=== PATIENT | female | born 1970 | race Caucasian/White ===

== ENCOUNTER 2017-01-04 09:48 | Emergency (ER) | payer OTHER ==
[~2017-01-04] VITALS: Ht 167.6 cm; Wt 78.0 kg
[~2017-01-04 09:48] MED LIST: PAXIL
[2017-01-04 09:57] VITALS: Ht 167.6 cm; Wt 78.0 kg
[2017-01-04 10:28] LABS: URINE BLOOD (Dip) POC Negative (NEGATIVE)
[2017-01-04 11:06] LABS: ADD UMIC YES; URINE BILIRUBIN (Dip) NEGATIVE (NEGATIVE); URINE BLOOD (Dip) NEGATIVE (NEGATIVE); URINE COLOR YELLOW (YELLOW); URINE GLUCOSE (Dip) NEGATIVE (NEGATIVE); URINE KETONES (Dip) NEGATIVE (NEGATIVE); URINE LEUKOCYTE ESTERASE (Dip) TRACE (NEGATIVE); URINE NITRITE (Dip) NEGATIVE (NEGATIVE); URINE TOTAL PROTEIN (Dip) NEGATIVE (NEGATIVE); URINE UROBILINOGEN (Dip) 0.2 E.U./dL (0.1-1.0)
[2017-01-04 11:29] LABS: BACTERIA,URINE OCCASIONAL; SQUAMOUS EPITHELIAL CELL,UR FEW; URINE RBCS NONE SEEN /HPF (0)
[2017-01-04] MEDS ORDERED: PHEN-537 PO (11:51)
[2017-01-04] MEDS ORDERED: CEPH-443 PO (11:51)
[2017-01-04] MEDS ORDERED: CEFTRIAXONE 250 MG INJ IM ONE (12:00)
--- NOTE | 2017-01-04 12:10 | ERA ---
ER Documentation Chief Complaint Date/Time DATE: 01/04/17 TIME: 12:05 Chief Complaint Pt with B flank pain and dysuria x 1 week, chills last night. HPI Patient is a 46-year-old female whose chief complaint is bilateral flank pain. Patient's pain has been lasting for the past 2 days. Patient also complains of dysuria. Patient denies hematuria, vaginal discharge, pruritus, abdominal pain , change in bowel habits, foul odor or headache. Patient was diagnosed with the UTI 3 weeks ago and underwent a 7 day course of Levaquin. Patient says that the symptoms feel the same. There are no aggravating or relieving factors to stated. ROS All systems reviewed and are negative except as per history of present illness. Medications Home Meds Active Scripts Phenazopyridine Hcl* (Pyridium*) 100 Mg Tab, 100 MG PO TID Y for URINARY PAIN, # 8 TAB Prov:JENNY BELL PA-C 01/04/17 Cephalexin* (Keflex*) 500 Mg Capsule, 500 MG PO QID for 7 Days, CAP Prov:JENNY BELL PA-C 01/04/17 Reported Medications [Paxil] No Conflict Check 06/25/11 Allergies Allergies: Coded Allergies: No Known Drug Allergies (Verified Allergy, Unknown, 01/04/17) PMhx/Soc Medical and Surgical Hx: pt denies Surgical Hx History of Surgery: No Anesthesia Reaction: No Hx Neurological Disorder: No Hx Respiratory Disorders: No Hx Cardiac Disorders: No Hx Psychiatric Problems: Yes (ANXIETY/DEPRESSION) Hx Miscellaneous Medical Probl: No Hx Alcohol Use: No Hx Substance Use: No Hx Tobacco Use: No Smoking Status: Never smoker Physical Exam Vitals Vital Signs Date Time Temp Pulse Resp B/P Pulse Ox O2 Delivery O2 Flow Rate FiO2 01/04/17 09:57 98.8 79 20 131/74 96 Physical Exam Const: Well-appearing overweight 38-year-old Head: Atraumatic Eyes: Normal Conjunctiva ENT: Normal External Ears, Nose and Mouth. Neck: Full range of motion..~ No meningismus. Resp: Clear to auscultation bilaterally Cardio: Regular rate and rhythm, no murmurs Abd: Soft, non tender, non distended. Normal bowel sounds. No masses felt. No McBurney's point tenderness. Skin: No petechiae or rashes Back: No midline or flank tenderness to palpation. No CVA tenderness. Ext: No cyanosis, or edema Neur: Awake and alert Psych: Normal Mood and Affect Results 24 hrs Laboratory Tests Test 01/04/17 10:28 01/04/17 10:29 Urine Color YELLOW Urine Clarity CLEAR Urine pH 7.5 Urine Specific [place] 1.010 Urine Ketones NEGATIVE Urine Nitrite NEGATIVE Urine Bilirubin NEGATIVE Urine Urobilinogen 0.2 E.U./dL Urine Leukocyte Esterase TRACE Urine Microscopic RBC NONE SEEN/HPF Urine Microscopic WBC 0-2/HPF Urine Squamous Epithelial Cells FEW Urine Bacteria OCCASIONAL Urine Hemoglobin NEGATIVE Urine Glucose NEGATIVE% Urine Total Protein NEGATIVE Bedside Urine pH (LAB) 8.5 Bedside Urine Protein (LAB) Trace Bedside Urine Glucose (UA) Negative Bedside Urine Ketones (LAB) Negative Bedside Urine Blood Negative Bedside Urine Nitrite (LAB) Negative Bedside Urine Leukocyte Esterase (L Trace Current Medications Medications (Trade) Dose Ordered Sig/Stuart Route PRN Reason Start Time Stop Time Status Last Admin Dose Admin Ceftriaxone Sodium (Rocephin) 250 mg ONCE ONCE IM 01/04/17 12:00 01/04/17 12:01 DC Procedures/MDM 38-year-old female with dysuria and bilateral flank pain. Labs showed no hematuria but mild to moderate leukocyte esterase and an elevated pH of 8.5.. Otherwise normal. Most likely diagnosis is cystitis. There is no CVA tenderness on physical exam the patient appears well; I very low suspicion for pyelonephritis. There is no hematuria and the pain is bilateral and the patient is only in mild distress; I very low suspicion for nephrolithiasis. I will go ahead and treat the patient for acute cystitis. Will prescribe Keflex infection Pyridium for discomfort. Patient's vitals are stable and is ready for discharge. Will be given discharge instructions with return precautions. Culture was taken and patient will be notified if Departure Diagnosis: Primary Impression: Urinary tract infection Qualified Code: N30.00 - Acute cystitis without hematuria Condition: Stable Patient Instructions: Understanding Urinary Tract Infections (UTIs) Additional Instructions: Follow up with your PCP within the next 1-3 days for a more thorough evaluation and a possible referral to a specialist. Return the the emergency department immediately if symptoms worsen or change. If you have any questions regarding medications, ask your pharmacist or us before you leave. If any adverse reactions occur while taking your medications, discontinue the treatment and return to the emergency department immediately. Take your medications as directed, and complete the entire course of treatment. JENNY BELL PA-C January 04, 2017 12:10
[2017-01-04 12:57] VITALS: BP 131/82; PULSE 83; RESP 18; TEMP 98.1
== END 2017-01-04 12:58 | disposition home or self-care (01) ==
LOC: FTE 09:48
DX: N30.00 Acute cystitis without hematuria (principal)
CPT/HCPCS: 81001; 87086; 96372; 99284; J0696; 81003

== ENCOUNTER 2017-03-11 07:02 | Emergency (ER) | payer OTHER ==
[~2017-03-11] VITALS: Ht 165.1 cm; Wt 78.5 kg
[~2017-03-11 07:02] MED LIST changes: +CEPH-443 PO; +PHEN-537 PO
[2017-03-11 07:08] VITALS: Ht 165.1 cm; Wt 78.5 kg
[2017-03-11] MEDS ORDERED: ONDANSETRON 4 MG INJ IV STA (07:45)
[2017-03-11] MEDS ORDERED: SOD CHLORIDE 0.9% 1,000 ML IV STA (07:45)
[2017-03-11] MEDS ORDERED: morphine 4 MG/ML VIAL IV STA (07:45)
[2017-03-11 08:27] LABS: ADD SCAN DIFF NO
[2017-03-11 08:32] LABS: BASOPHILS % 0.5 % (0.0-2.0); EOSINOPHILS # 0.2 10^3/ul (0.0-0.5); EOSINOPHILS % 2.1 % (0.0-7.0); HEMATOCRIT 35.1 % (37.0-47.0); LYMPHOCYTES % 27.2 % (15.0-51.0); MEAN CORPUSCULAR HEMOGLOBIN 31.3 pg (29.0-33.0); MEAN CORPUSCULAR HGB CONC 34.2 g/dl (32.0-37.0); MEAN CORPUSCULAR VOLUME 91.4 fl (82.0-101.0); MONOCYTE # 0.5 10^3/ul (0.3-0.9); MONOCYTES % 6.9 % (0.0-11.0); NEUTROPHIL # 4.7 10^3/ul (1.6-7.5); NEUTROPHILS % 62.6 % (39.0-77.0); PLATELET COUNT 240 10^3/UL (140-415); RED BLOOD COUNT 3.84 10^6/ul (4.20-5.40); RED CELL DISTRIBUTION WIDTH 12.9 % (11.5-14.5); WHITE BLOOD COUNT 7.5 10^3/ul (4.8-10.8)
[2017-03-11 08:54] LABS: ALBUMIN 4.3 g/dl (3.3-4.9); ALBUMIN/GLOBULIN RATIO 1.48; BILIRUBIN,INDIRECT 0.4 mg/dl (0-1.1); BILIRUBIN,TOTAL 0.4 mg/dl (0.2-1.3); CALCIUM 9.3 mg/dl (8.4-10.2); CREATININE 0.65 mg/dl (0.44-1.00); POTASSIUM 3.2 mmol/L (3.5-5.1); TOTAL PROTEIN 7.2 g/dl (6.1-8.1)
[2017-03-11] MEDS ORDERED: KETOROLAC 15 MG INJ IV STA (09:04)
[2017-03-11] MEDS ORDERED: POTASSIUM CHLORIDE (SR) 20 MEQ TAB PO STA (09:05)
[2017-03-11 09:10] LABS: ADD UMIC YES; UR ASCORBIC ACID NEGATIVE (NEGATIVE); UR BACTERIA FEW /HPF (NONE SEEN); UR BILIRUBIN (Dip) NEGATIVE (NEGATIVE); UR BLOOD (Dip) NEGATIVE (NEGATIVE); UR CLARITY SLIGHTLY CLOUDY (CLEAR); UR COLOR YELLOW (YELLOW); UR GLUCOSE (Dip) NEGATIVE (NEGATIVE); UR KETONES (Dip) TRACE mg/dL (NEGATIVE); UR LEUKOCYTE ESTERASE (Dip) 2+ Leu/ul (NEGATIVE); UR MUCUS MANY /HPF (NONE SEEN); UR NITRITE (Dip) NEGATIVE (NEGATIVE); UR RBC 21 /HPF (0-5); UR RENAL EPITHELIAL CELL FEW /HPF (NONE SEEN); UR SPECIFIC GRAVITY (Dip) 1.019 (1.003-1.030); UR SQUAMOUS EPITHELIAL CELL FEW /HPF (FEW); UR TOTAL PROTEIN (Dip) NEGATIVE (NEGATIVE); UR UROBILINOGEN (Dip) NEGATIVE (NEGATIVE)
[2017-03-11] MEDS ORDERED: CEFTRIAXONE 1 GM/50 ML (PMX) 50 ML IVPB ONE (09:30)
[2017-03-11] MEDS ORDERED: CIPR500T4 PO (10:46)
[2017-03-11] MEDS ORDERED: NAPR-688 PO (10:47)
[2017-03-11] MEDS ORDERED: ONDA4TAB11 PO (10:48)
--- NOTE | 2017-03-11 10:52 | ERD ---
ER Documentation Chief Complaint Date/Time DATE: 03/11/17 TIME: 10:49 Chief Complaint N/V, Weakness with intermittent fever x 3 days denies n/v at this time HPI 38-year-old female presents with fevers on and off for 3 days as well as nausea and vomiting. She last vomited 2 days ago. She recently returned from a trip from the [place]. She did have some loose stools as well. ROS All systems reviewed and are negative except as per history of present illness. Medications Home Meds Active Scripts Ondansetron (Zofran Odt) 4 Mg Tab.rapdis, 4 MG PO Q6, #10 Prov:MILOPIEDAD DO 03/11/17 Naproxen* (Naproxen*) 500 Mg Tablet, 500 MG PO BID Y for PAIN, #20 TAB Prov:MILOPIEDAD DO 03/11/17 Ciprofloxacin Hcl* (Ciprofloxacin Hcl*) 500 Mg Tablet, 500 MG PO BID, #14 TAB Prov:PIEDAD PEDRAZA DO 03/11/17 Phenazopyridine Hcl* (Pyridium*) 100 Mg Tab, 100 MG PO TID Y for URINARY PAIN, # 8 TAB Prov:JENNY BELL PA-C 01/04/17 Cephalexin* (Keflex*) 500 Mg Capsule, 500 MG PO QID for 7 Days, CAP Prov:JENNY BELL PA-C 01/04/17 Reported Medications [Paxil] No Conflict Check 06/25/11 Allergies Allergies: Uncoded Allergies: SULFA (Allergy, Intermediate, 03/11/17) PMhx/Soc History of Surgery: No Anesthesia Reaction: No Hx Neurological Disorder: No Hx Respiratory Disorders: No Hx Cardiac Disorders: No Hx Psychiatric Problems: Yes (ANXIETY/DEPRESSION) Hx Miscellaneous Medical Probl: No Hx Alcohol Use: No Hx Substance Use: No Hx Tobacco Use: No Smoking Status: Never smoker Physical Exam Vitals Vital Signs Date Time Temp Pulse Resp B/P Pulse Ox O2 Delivery O2 Flow Rate FiO2 03/11/17 07:08 98.5 64 16 121/73 99 Physical Exam Const: [] No distress Head: Atraumatic Eyes: Normal Conjunctiva ENT: Normal External Ears, Nose and Mouth. Neck: Full range of motion..~ No meningismus. Resp: Clear to auscultation bilaterally Cardio: Regular rate and rhythm, no murmurs Abd: Soft, mild lower abdominal tenderness without guarding or rebound, non distended. Normal bowel sounds Skin: No petechiae or rashes Back: No midline or flank tenderness Ext: No cyanosis, or edema Neur: Awake and alert and oriented 3, no focal deficits Psych: Normal Mood and Affect Result Diagram: 03/11/17 0809 03/11/17 0809 Results 24 hrs Laboratory Tests Test 03/11/17 08:09 03/11/17 08:11 White Blood Count 7.510^3/ul Red Blood Count 3.8410^6/ul Hemoglobin 12.0g/dl Hematocrit 35.1% Mean Corpuscular Volume 91.4fl Mean Corpuscular Hemoglobin 31.3pg Mean Corpuscular Hemoglobin Concent 34.2g/dl Red Cell Distribution Width 12.9% Platelet Count 40459^3/UL Mean Platelet Volume 11.0fl Neutrophils % 62.6% Lymphocytes % 27.2% Monocytes % 6.9% Eosinophils % 2.1% Basophils % 0.5% Nucleated Red Blood Cells % 0.0/100WBC Neutrophils # 4.710^3/ul Lymphocytes # 2.010^3/ul Monocytes # 0.510^3/ul Eosinophils # 0.210^3/ul Basophils # 0.010^3/ul Nucleated Red Blood Cells # 0.010^3/ul Sodium Level 144mmol/L Potassium Level 3.2mmol/L Chloride Level 102mmol/L Carbon Dioxide Level 27mmol/L Anion Gap 18 Blood Urea Nitrogen 13mg/dl Creatinine 0.65mg/dl Glucose Level 96mg/dl Calcium Level 9.3mg/dl Total Bilirubin 0.4mg/dl Direct Bilirubin 0.00mg/dl Indirect Bilirubin 0.4mg/dl Aspartate Amino Transf (AST/SGOT) 20IU/L Alanine Aminotransferase (ALT/SGPT) 27IU/L Alkaline Phosphatase 69IU/L Total Protein 7.2g/dl Albumin 4.3g/dl Globulin 2.90g/dl Albumin/Globulin Ratio 1.48 Lipase 25U/L Urine Color YELLOW Urine Clarity SLIGHTLY CLOUDY Urine pH 7.0 Urine Specific [place] 1.019 Urine Ketones TRACEmg/dL Urine Nitrite NEGATIVEmg/dL Urine Bilirubin NEGATIVEmg/dL Urine Urobilinogen NEGATIVEmg/dL Urine Leukocyte Esterase 2+[place]/ul Urine Microscopic RBC 21/HPF Urine Microscopic WBC 16/HPF Urine Squamous Epithelial Cells FEW/HPF Urine Renal Epithelial Cells FEW/HPF Urine Calcium Oxalate Crystals MODERATE/HPF Urine Bacteria FEW/HPF Urine Mucus MANY/HPF Urine Hemoglobin NEGATIVEmg/dL Urine Glucose NEGATIVEmg/dL Urine Total Protein NEGATIVEmg/dl Current Medications Medications (Trade) Dose Ordered Sig/Stuart Route PRN Reason Start Time Stop Time Status Last Admin Dose Admin Sodium Chloride (NS) 1,000 ml @ 1,000 mls/hr Q1H STAT IV 03/11/17 07:45 03/11/17 08:44 DC 03/11/17 08:07 Morphine Sulfate (morphine) 4 mg ONCE STAT IV 03/11/17 07:45 03/11/17 07:50 DC Ondansetron HCl (Zofran Inj) 4 mg ONCE STAT IV 03/11/17 07:45 03/11/17 07:50 DC 03/11/17 08:05 Ketorolac Tromethamine (Toradol) 15 mg ONCE STAT IV 03/11/17 09:04 03/11/17 09:06 DC Potassium Chloride 40 meq 40 meq ONCE STAT PO 03/11/17 09:05 03/11/17 09:06 DC 03/11/17 09:16 Ceftriaxone Sodium (Rocephin) 50 ml @ 100 mls/hr ONCE ONCE IVPB 03/11/17 09:30 03/11/17 09:59 DC 03/11/17 09:39 Procedures/MDM Complicated UTI and that the patient's had weakness as well as nausea and vomiting. May also have concomitant travelers diarrhea in addition to UTI causing some of the symptoms. She was hydrated with a liter of normal saline and given morphine and Zofran IV. She felt much better after this. She was also given a gram of Rocephin to initiate treatment of her UTI. She was also given 40 mEq of K-Dur p.o. I am discharging with ciprofloxacin as well as Zofran ODT and naproxen. Primary care follow-up in 2 3 days and return precautions. Departure Diagnosis: Primary Impression: Vomiting Additional Impressions: Complicated UTI (urinary tract infection) Hypokalemia Condition: Stable Patient Instructions: Understanding Urinary Tract Infections (UTIs) Additional Instructions: Call your primary care doctor TOMORROW for an appointment during the next 2-3 days.See the doctor sooner or return here if your condition worsens before your appointment time. PIEDAD PEDRAZA DO Mar 11, 2017 10:52
[2017-03-11 10:59] VITALS: BP 137/67; PULSE 60; RESP 20; TEMP 98.3
== END 2017-03-11 11:00 | disposition home or self-care (01) ==
LOC: FTE 07:02
DX: R11.10 Vomiting, unspecified (principal); N39.0 Urinary tract infection, site not specified; E87.6 Hypokalemia
CPT/HCPCS: 36415; 80053; 81001; 83690; 85025; 96374; 96375; 99284; J0696; J1885; J2405; J7030; J2270